=== PATIENT | female | born 1950 | race Caucasian/White ===

== ENCOUNTER 2016-06-07 15:40 | Observation (INO) | payer MEDICARE, OTHER ==
[~2016-06-07] VITALS: Ht 162.6 cm; Wt 136.6 kg
[2016-06-07 15:48] VITALS: BP 150/85; PULSE 69; RESP 16; O2SAT 100
--- NOTE | 2016-06-07 15:50 | ED.REPORT ---
HPI-Chest Pain 40 and Over Date of Service Jun 07, 2016 ED Provider: Melissa Owens MD A 65 year old female with a history of borderline HTN presents to the ED via EMS complaining of middle chest pain onset 2 days ago. Chest pain onset suddenly and is described as tightness and pressure, the pain getting progressively worse since onset. The pain was originally accompanied by coughing. 4 days ago, the patient reports having vomiting, generalized pain , and diaphoresis that she treated with Pepto-Bismol.She reports SOB and right sided rib pain onset yesterday. Patient has baseline swelling in feet and ankles , but denies that there is any new swelling. She denies any heart palpitations or problems lying flat. She was recently traveling in a car for 4 days and got home 5 days ago. She has concern for food poisoning from old butter she ate 5 days ago. Nursing Notes Stated Complaint: CHEST PAIN Chief Complaint: Chest Pain Nursing Notes Reviewed: Yes Allergies: Coded Allergies: No Known Allergies (Unverified , 06/07/16) Scheduled Escitalopram Oxalate (Lexapro) 20 Mg Tablet 20 MG PO HS Scheduled PRN Aspirin/Acetaminophen/Caffeine (Quhhfhx-Qvgtlptdbhoij-Tyko Tab) 250 Mg-250 Mg- 65 Mg Tablet 2 EACH PO DAILY PRN PRN For Headache General Time Seen by MD: 15:47 Chief Complaint Chest pain Hx Obtained From: Patient, EMS Arrived By: Ambulance Sudden in Onset?: Yes Onset Occurred: 2 days ago Symptom Duration: Since onset Severity: Current: Moderate Severity: Maximum: Moderate Recent Healthcare: No recent doctor visit Similar Sx Previous: No Past Medical History Past Medical History Notes: Recent doctor visit in [facility] Past Medical History Borderline HTN Baseline foot and ankle swelling obesity Denies Hx of hypercholesterolemia. Denies: Diabetes mellitus Reports: Depression (Treated with medication. ) Past Surgical History none reported. Social History Currently prepping for her own wedding, selling her house, and applying for a new job. Ambulatory Status Independent Review of Systems Review of Systems Note: Right sided rib pain. Denies problems with lying flat. Respiratory: Reports: Non-productive cough, Shortness of breath Cardiovascular: Reports: Chest pain, Denies: Palpitations GI: Reports: Vomiting Musculoskeletal: Denies: Extremity swelling (Denies swelling in ankle beyond basline) Skin: Reports Diaphoresis Complete sys rev & neg: except as marked. Physical Exam Initial Vital Signs Vital Signs (First) Date Time Temp Pulse Resp B/P Pulse Ox O2 Delivery O2 Flow Rate FiO2 06/07/16 15:48 36.6 69 16 150/85 100 Room Air 06/07/16 17:20 2 Initial VS: Reviewed General/Constitutional: Awake, Alert Appearance / Presentation: Positive: Obese Respiratory / Chest: Atraumatic, Breath sounds NL, Breath sounds = bilat, No respiratory distress, No rales, No rhonchi, No wheezing Cardiovascular: Heart rate NL, Regular rhythm, Heart sounds NL, No gallop, No murmurs, No rubs Abdomen: No guarding, No rebound Lower Extremity / Pelvis / MS: No swelling, No edema Skin: Atraumatic, Color NL, Warm, Dry Neurologic: Oriented X3, Speech NL Interpretation & Diagnostics Lab Results Interpretation Result Diagram: 06/07/16 1553 06/07/16 1553 Test 06/07/16 15:53 06/07/16 18:40 White Blood Count 10.3th/mm3 (3.8-10.1) Red Blood Count 4.98mil/mm3 (3.90-5.20) Hemoglobin 14.4g/dL (12.0-15.6) Hematocrit 44.6% (35.0-46.0) Mean Corpuscular Volume 89.6fL (81-100) Mean Corpuscular Hemoglobin 28.9pg (27.0-35.0) Mean Corpuscular Hemoglobin Concent 32.3% (32.0-37.0) Red Cell Distribution Width 14.1% (12.3-15.4) Platelet Count 328bil/L (150-400) Neutrophils (%) (Auto) 58.2% (40-74) Lymphocytes (%) (Auto) 28.1% (14-46) Monocytes (%) (Auto) 10.1% (4-12) Eosinophils (%) (Auto) 2.8% (0-5) Basophils (%) (Auto) 0.5% (0-3) Hold Purple Top Tube Received (Received) Hold Blue Top Tube Received (Received) Sodium Level 139mEq/L (134-144) Potassium Level 3.6mEq/L (3.5-5.2) Chloride Level 99mEq/L (97-108) Carbon Dioxide Level 23mmol/L (18-29) Blood Urea Nitrogen 19mg/dL (8-27) Creatinine 0.72mg/dL (0.57-1.00) Estimat Glomerular Filtration Rate 116mL/min (>59) Glucose Level 116mg/dL (60-99) Calcium Level 10.1mg/dL (8.5-10.1) Magnesium Level 2.3mg/dL (1.6-2.6) Total Bilirubin 0.5mg/dL (0.0-1.2) Aspartate Amino Transf (AST/SGOT) 30U/L (0-50) Alanine Aminotransferase (ALT/SGPT) 29U/L (0-32) Alkaline Phosphatase 73U/L (25-165) Troponin T < 0.010ug/L (0.0-0.011) Total Protein 7.9g/dL (6.4-8.4) Albumin 4.5g/dL (3.4-5.0) Hold [place] Top Tube Received (Received) Hold Urine Received (Received) ECG Interpretation ECG Interpretation: No ischemia. Time: 16:29 Interpreted by: ED physician Normal ECG Interpretation: Normal rate, Normal sinus rhythm, No acute ischemic changes, Normal QRS, Normal axis, Normal intervals, No change from prior ECGs, Adequate tracing X-Ray Chest Interpretation Chest Xray Interpretation: IMPRESSION: Negative chest. No pneumonia is evident. Dictated by: Zack Palacios M.D. on 06/07/2016 at 15:33 Approved by: Zack Palacios M.D. on 06/07/2016 at 15:34 Interpretation / Wet Read by: Interpret - Radiologist CT Chest Interpretation IMPRESSION: 1. Acute disease is seen in the lungs. (clinical context indicates NO acute disease was meant to be dictated, Dr Owens) 2. No evidence for pulmonary embolus. No abnormality of the aorta or great vessels is seen either. 3. Multiple gallstones less than 1 cm sized are present in the gallbladder. Dictated by: Refugio Rees M.D. on 06/07/2016 at 19:02 Re-Eval/Medical Decision Med Decision/Clinical Course 65-year-old woman presents with two-week history of N keep increasing intermittent chest pain significant exertional dyspnea chest tightness over the upper portion of the chest and intermittent pain over the right side of her chest. This report 4 day car trip prior to symptoms starting symptoms progressing to the point where she is avoiding stairs and cannot reproduce symptoms with minimal activity. He was seen by her primary care physician this morning and sent to the emergency room for additional evaluation. Was given aspirin in the clinic and with a single nitroglycerin her chest pressure has resolved. She has remained pain-free throughout emergency room stay because of the 4 day car trip history possibility of pulmonary embolus was entertained and the CT scan shows no evidence of pulmonary emboli. She has been given Lovenox for presumed unstable angina. Initial labs are unremarkable. With the severity of symptoms recently she will be admitted to the hospitalist for additional evaluation and cardiac consultation if appropriate Source of Hx: Old records, EMS Time of Eval: 16:06 Re-Evaluation/Progress Note: Rechecked patient. Time of Eval: 17:52 Re-Evaluation/Progress Note: Rechecked patient and explained plan to do tests and check for blood clots. Explained plan for possible hospital admission. Time of Eval: 18:01 Re-Evaluation/Progress Note: Explained and discussed patient case with patient's son over cell phone. Consultation : Consulted With: Hospitalist Call Returned at: 20:16 Senior Erp Consultant: Will see patient, Agrees with plan, Accepts admit Counseled Regarding: Diagnosis, Lab results, Need for follow-up Discharge & Departure Primary Impression: Chest pain on exertion Additional Impression: Acute coronary syndrome Ruled Out: Pulmonary embolism, Pneumonia, Pneumothorax, STEMI (ST elevation myocardial infarction) Disposition: ADMITTED TO HOSPITAL Referrals: ALYSIA Brown Attestation Portions of this note were transcribed by Jd Brown. I, Dr. Owens personally performed the history, physical exam and medical decision-making; I reviewed and confirmed the accuracy of the information in the transcribed note. Signed by: Stephanie Nixon, 06/07/2016, 0608. copies to: Melissa Torres MD Jun 07, 2016 15:50 Jd Brown Jun 07, 2016 16:07
[2016-06-07 16:02] LABS: BASOPHILS % (AUTO) 0.5 % (0-3); EOSINOPHILS % (AUTO) 2.8 % (0-5); MONOCYTES % (AUTO) 10.1 % (4-12); Mean Corpuscular Hemoglobin 28.9 pg (27.0-35.0); Mean Corpuscular Volume 89.6 fL (81-100); NEUTROPHILS % (AUTO) 58.2 % (40-74); Platelet Count 328 bil/L (150-400)
[2016-06-07 16:35] LABS: TROPONIN T < 0.010 ug/L (0.0-0.011)
--- NOTE | 2016-06-07 16:35 | DRSVH ---
PROCEDURE: X-RAY CHEST ONE VIEW, PORTABLE ([id number]) INDICATIONS: cp TECHNIQUE: One view of the chest was acquired. COMPARISON: None. FINDINGS: Surgical changes and devices: None. Lungs and pleura: No pleural effusions or pneumothorax. Lungs are clear. Mediastinum: Mediastinal contours appear normal. Heart size is normal. Bones and chest wall: No suspicious bony lesions. Overlying soft tissues appear unremarkable. IMPRESSION: Negative chest. No pneumonia is evident. Dictated by: Zack Palacios M.D. on 06/07/2016 at 15:33 Approved by: Zack Palacios M.D. on 06/07/2016 at 15:34
[2016-06-07 16:37] LABS: Magnesium 2.3 mg/dL (1.6-2.6)
[2016-06-07 17:20] VITALS: BP 154/66; PULSE 68; RESP 16; O2SAT 100
[2016-06-07 18:39] VITALS: BP 137/89; PULSE 84; RESP 16; O2SAT 98
--- NOTE | 2016-06-07 19:08 | DRSVH ---
PROCEDURE: CT ANGIO CHEST PULMONARY EMBOLISM ([id number]) INDICATIONS: chest pain, dyspnea TECHNIQUE: After the administration of intravenous contrast, 2 mm thick sections acquired from the pulmonary api stephany to the posterior costophrenic angles. 3-dimensional maximum intensity projection (MIP) coronal a nd sagittal reformats were then acquired through the thorax. For radiation dose reduction, the follo wing was used: automated exposure control, adjustment of mA and/or kV according to patient size. COMPARISON: [facility], CR, XR CHEST 1VW (PORTABLE), 06/07/2016, 15:59. FINDINGS: Image quality: Excellent. Pulmonary arteries: Pulmonary arteries are normal in size, and demonstrate no intraluminal filling d efects to suggest central pulmonary embolism. Lungs and pleura: Lungs are clear. Small old calcified granuloma is seen on the right No pleural eff usions or pneumothorax. Central and peripheral airways are patent. Mediastinum: Heart size is normal, without pericardial effusion. No mediastinal or hilar adenopathy . Thoracic aorta is normal in caliber and enhancement. Esophagus is normal in caliber, without hiat al hernia. Bones and chest wall: No suspicious bony lesions. Ribs and thoracic spine appear intact throughout. Thyroid gland is within normal limits. No axillary or supraclavicular adenopathy. Abdomen: Multiple small gallstones are present in the gallbladder. Visualized upper abdominal solid o rgans appear normal in the early arterial phase of enhancement. IMPRESSION: 1. Acute disease is seen in the lungs. 2. No evidence for pulmonary embolus. No abnormality of the aorta or great vessels is seen either. 3. Multiple gallstones less than 1 cm sized are present in the gallbladder. Dictated by: Refugio Rees M.D. on 06/07/2016 at 19:02 Approved by: Refugio Rees M.D. on 06/07/2016 at 19:06
[2016-06-07] MEDS ORDERED: ESCI20TA PO (19:35)
[2016-06-07] MEDS ORDERED: ASPI-1148 PO (19:35)
[2016-06-07] MEDS ORDERED: Senna-Docusate 8.6-50 mg Tablet PO PRN (20:00)
[2016-06-07] MEDS ORDERED: Polyethylene Glycol (PEG) 17 Gm Powder PO PRN (20:00)
[2016-06-07] MEDS ORDERED: Ondansetron 2 mg/mL 2 mL Inj IVPUSH PRN (20:00)
[2016-06-07] MEDS ORDERED: Alum-Mag Hydrox-Simeth 30 mL Suspension PO PRN (20:00)
[2016-06-07 20:09] VITALS: BP 142/92; PULSE 78; RESP 16; O2SAT 96
[2016-06-07 20:12] VITALS: BP 142/92; PULSE 78; RESP 16; O2SAT 96
[2016-06-07 20:59] VITALS: BP 146/78; PULSE 71; RESP 20; O2SAT 98
--- NOTE | 2016-06-07 22:18 | PCM.HPMED ---
Subjective Date of Service Jun 07, 2016 Primary Provider: Admitting Physician: Annabelle Waller DO Primary Care Physician: Leia Juarez MD Attending Physician: Annabelle Wlaler DO Admit Status: From the Emergency Department Chief Complaint: Dyspnea on Exertion, Chest Tightness History of Present Illness: Healthy 65yo woman with BMI of 52, hx of borderline HTN never treated, Depression present to our ER via EMS from her doctor's office in [place] reporting 3 days of worsening dyspnea on exertion and chest tightness. She returned 5 days ago from a four day car trip. 4 days ago she had an afternoon of vomiting and diarrhea which she attributes maybe to eating old butter. The vomiting was rather violent she reports and she has had some lower right rib pain since then. She usually uses the stairs at her workplace for exercise but has had to avoid them these last few days. She has a dry cough for these 3 days , chronic bilateral ankle edema that resolves overnight, denies palpitations and orthopnea.She reports she had similar symptoms of chest tightness in 2004, had a stress test she wasn't able to complete, and was sent to the slab tripper where she says they did not find anything to treat and sent her home saying she needed treatment for GERD. Her CTA in the ER today is negative for PE findings and her CXR is normal. She does report a lot of current stress with a good major transition in her life that includes getting in July, quitting work, and moving to [place]. Review of Systems: 14 point ROS is negative except as noted above in the HPI. Allergies Coded Allergies: No Known Allergies (Unverified , 06/07/16) Home Medications Lexipro 20mg PO qhs PMH Borderline HTN Baseline foot and ankle swelling Obesity Depression Denies Hx of hypercholesterolemia. Denies: Diabetes mellitus Surgical History Cataract Surgery in 2016 Hysterectomy in 1994 Family History Father of colon cancer at age 80 Mother of uterine cancer at age 87 Brother has CAD and is s/p CABG Social History Occupation: [employer] Hx Alcohol Use: No Hx Substance Use: No Hx Tobacco Use: No Living Arrangement: with Family Exam Vital Signs Vital Sign - Last Date Time Temp Pulse Resp B/P Pulse Ox O2 Delivery O2 Flow Rate FiO2 06/07/16 20:59 36.6 71 20 146/78 98 Room Air 06/07/16 20:12 2 Exam General: Alert, Oriented X3, Cooperative, No Acute Distress, morbidly obese in appearance Head: Normocephalic, atraumatic. External ears normal. Eyes: PERRLA, EOMI. Anicteric sclerae. Mouth: Mouth Normal, Mucous Membranes Moist/[place] Neck: Neck supple with full range of motion. Chest & Lungs: Clear to auscultation bilaterally with no crackles, wheezes, or rhonchi. Cardiovascular: Regular Rate/Rhythm, Normal S1, Normal S2, No Murmurs/Rubs/ Gallops Abdomen: Non-tender, Non-distended, No masses, Normoactive bowel tones, Soft Musculoskeletal: Normal Range of Motion Extremities: No cyanosis/clubbing bilaterally. Bilateral ankle edema Neurological: Grossly Neurologically Intact, Cranial Nerves 2-12 Intact, Normal Speech, Strength Normal 05/22 ext, Sensation Intact, Cerebellar Function nl Finger-Nose, Cerebellar Function nl Heel-Love, Reflexes Normal Lab and Diagnostics Labs Laboratory Tests Test 06/07/16 15:53 06/07/16 18:40 White Blood Count 10.3th/mm3 (3.8-10.1) Red Blood Count 4.98mil/mm3 (3.90-5.20) Hemoglobin 14.4g/dL (12.0-15.6) Hematocrit 44.6% (35.0-46.0) Mean Corpuscular Volume 89.6fL (81-100) Mean Corpuscular Hemoglobin 28.9pg (27.0-35.0) Mean Corpuscular Hemoglobin Concent 32.3% (32.0-37.0) Red Cell Distribution Width 14.1% (12.3-15.4) Platelet Count 328bil/L (150-400) Neutrophils (%) (Auto) 58.2% (40-74) Lymphocytes (%) (Auto) 28.1% (14-46) Monocytes (%) (Auto) 10.1% (4-12) Eosinophils (%) (Auto) 2.8% (0-5) Basophils (%) (Auto) 0.5% (0-3) Hold Purple Top Tube Received (Received) Hold Blue Top Tube Received (Received) Sodium Level 139mEq/L (134-144) Potassium Level 3.6mEq/L (3.5-5.2) Chloride Level 99mEq/L (97-108) Carbon Dioxide Level 23mmol/L (18-29) Blood Urea Nitrogen 19mg/dL (8-27) Creatinine 0.72mg/dL (0.57-1.00) Estimat Glomerular Filtration Rate 116mL/min (>59) Glucose Level 116mg/dL (60-99) Calcium Level 10.1mg/dL (8.5-10.1) Magnesium Level 2.3mg/dL (1.6-2.6) Total Bilirubin 0.5mg/dL (0.0-1.2) Aspartate Amino Transf (AST/SGOT) 30U/L (0-50) Alanine Aminotransferase (ALT/SGPT) 29U/L (0-32) Alkaline Phosphatase 73U/L (25-165) Troponin T < 0.010ug/L (0.0-0.011) Total Protein 7.9g/dL (6.4-8.4) Albumin 4.5g/dL (3.4-5.0) Hold [place] Top Tube Received (Received) Hold Urine Received (Received) Result Diagram: 06/07/16 1553 06/07/16 1553 X-Rays, CTs and MRIs Chest Xray Interpretation: IMPRESSION: Negative chest. No pneumonia is evident. 12-lead ECG Normal ECG Interpretation: Normal rate, Normal sinus rhythm, rate of 62, No acute ischemic changes, Normal QRS, Normal axis, Normal intervals, No change from prior ECGs, Adequate tracing Assessment & Plan Morbidly obese 65yo woman with history of borderline hypertension, s/p cardiac catheterization in 2004 with her report of normal findings (done in [place] ), Depression well controlled on Lexipro presents with three days of worsening JEFFRIES, dry cough, and chest tightness preceded by a day of vomiting and diarrhea from possible food poisoning. 1. Chest Pressure and JEFFRIES, POA, unchanged. DDx includes most likely unstable angina vs PE (less likely w/neg CTA and no O2 needs at rest) vs HI (first troponin is normal). There is no indication at this point of an infectious process. -Lovenox given at 1800 for UA, consider change to Heparin in morning if troponins trend upward. -NPO after midnight -Serial troponins ordered -Lipid profile ordered, HA1c ordered -No Beta rain tonight, stress test tomorrow -Aspirin 325mg given, continued at 81mg PO daily -Stress test ordered 2. Depression, POA, well controlled -No Escitalopram in our formulary -Start on 06/09/16 after cardiac workup is complete 3. Morbid Obesity, POA, stable -BMI 52 -HA1c ordered 4. Elevated BP without diagnosis in outpatient setting of HTN, POA, stable mild elevation: 142-150/85-95 -Monitor elevated glucose, acute -no h/o diabetes -A1c pending Diet: Heart Healthy after any procedures PRN medications available for nausea, heartburn, constipation: Ondansetron, Maalox, Senna, Miralax Pain Evaluation: Adequate Pain Control GI Prophylaxis: Not indicated VTE Prophylaxis: Sub-Q Enoxaparin Resuscitation Status: CPR: Attempt Resuscitation Attending Statement The patient was seen and examined together with house staff on 06/08/2016 and I agree with the history, exam and plan as outlined in the note above. Elmer Hendricks DO Jun 07, 2016 22:18 Annabelle Waller DO Jun 08, 2016 02:01
--- NOTE | 2016-06-07 22:30 | NUR ---
admit: admit assessment complete. pt A&OX3. denies Chest pain/discomfort. CPOX in place, pt not able to get home CPAP, for the night. NPO after midnight, for stress test. pt aware. will continue to monitor
[2016-06-07] MEDS: 0.9% Sodium Chloride 1,000 ML IV SCH (23:12)
[2016-06-08] MEDS ORDERED: LORazepam 0.5 mg Tablet PO ONE
[2016-06-08 01:18] VITALS: BP 126/71; PULSE 73; RESP 16
[2016-06-08] MEDS: Sodium Chloride LOK Flush 10 mL Syringe IVFLUSH SCH ×3 (01:19→16:30)
--- NOTE | 2016-06-08 02:24 | NUR ---
Activity Received pt at 0135, pt in bed sleeping. No noted issues at this time, will monitor, left room with call light at bedside.
[2016-06-08 03:58] VITALS: PULSE 73
[2016-06-08 05:23] VITALS: BP 138/78; PULSE 69; RESP 16; O2SAT 98
[2016-06-08 06:09] LABS: BASOPHILS % (AUTO) 0.7 % (0-3); EOSINOPHILS % (AUTO) 4.5 % (0-5); MONOCYTES % (AUTO) 8.1 % (4-12); Mean Corpuscular Hemoglobin 28.3 pg (27.0-35.0); Mean Corpuscular Volume 90.4 fL (81-100); NEUTROPHILS % (AUTO) 59.5 % (40-74); Platelet Count 246 bil/L (150-400)
[2016-06-08 07:06] LABS: TROPONIN T 0.01 ug/L (0.0-0.011)
[2016-06-08 08:00] VITALS: PULSE 72
[2016-06-08] MEDS: 0.9% Sodium Chloride 1,000 ML IV SCH (08:29)
--- NOTE | 2016-06-08 11:02 | NUR ---
Off Unit: Patient transported to [facility] @ approx 0900 via wheelchair accompanied by transporter. dye lab technician notified. Denies pain at time of transport.
--- NOTE | 2016-06-08 12:39 | DRSVH ---
PROCEDURE: 1 DAY TREADMILL STRESS TEST Rest and exercise myocardial perfusion SPECT with gated imaging and ejection fraction RADIOPHARMACEUTICAL: 13.3 mCi Tc-99m tetrafosmin IV at rest and 45.6 mCi Tc-99m tetrafosmin IV at pea k exercise. [id number] was performed. INDICATIONS: 65 year-old woman with chest pain. Patient has hypertension and family history of coron jean artery disease. TECHNIQUE: Radiopharmaceutical was injected at peak stress test, and also at rest. SPECT images wer e obtained. SPECT myocardial perfusion images were displayed in short axis, horizontal long axis, an d vertical long axis views. Gated images were reviewed using AutoQUANT software. COMPARISON: None. CARDIAC STRESS: A standard Wade treadmill exercise tolerance test was performed by the patient under the supervision of an attending staff. The patient exercised for 3 minutes and 48 seconds; functional aerobic impai rment (GABE) is +20 %. Hemodynamic data: There is hypertensive and normal heart rate response to exercise stress. Patient achieved 100% of maximum predicted heart rate at peak exercise. Symptoms: Patient denied chest pain during exercise. EKG: No diagnostic EKG changes of ischemia; no ectopy. FINDINGS: Raw data: There is good myocardial labeling by radiotracer. No significant motion artifacts. Left ventricle function: Gated images demonstrate normal left ventricle wall thickening. No segment al wall motion abnormality. No transient ischemic dilation. The left ventricle resting end-diastoli c volume is normal. Left ventricle stress ejection fraction is greater than 70%; normal values are a matty 45%. Myocardial perfusion: There is normal distribution of activity in the left and right ventricular charbel cardium. No fixed or reversible perfusion defects. IMPRESSION: 1. Normal myocardial perfusion images. 2. Normal left ventricular volume and systolic function. 3. Limited exercise capacity. Hypertensive response to exercise. No chest pain or diagnostic EKG ceja ges for ischemia. PQRS ATTESTATIONS: Measure 322 - Is this imaging test primarily performed on a low-risk surgery patient for preoperative evaluation within 30 days preceding their low-risk non-cardiac surgery? Low-risk surgery is defined as cardiac or myocardial infarction less than 1%, including (but not limited to) endoscopic pr ocedures, superficial procedures, cataract surgery, and excisional breast surgery: Answer: No Measure 323 - Is this imaging test performed primarily for the monitoring of an asymptomatic patient who had percutaneous coronary intervention on the visit date or within 2 years of the visit date? An swer: No Measure 324 - Is this imaging test performed primarily for the initial detection and risk assessment on an asymptomatic, low coronary heart disease patient? Low CHD risk definition = clinicians should consider the maximum number of available patient factors used to estimate risk based on Mcdonald (A TP III criteria), typically age, gender, diabetes, smoking status, and use of blood pressure medicati on, and integrate age appropriate estimates for missing elements, such as LDL or standard blood press ure. Answer: No Dictated by: Chikis Branham M.D. on 06/08/2016 at 12:33 Approved by: Chikis Branham M.D. on 06/08/2016 at 12:38
[2016-06-08 13:25] VITALS: BP 134/82; PULSE 69; RESP 18; O2SAT 96
--- NOTE | 2016-06-08 15:59 | PCM.DIMED ---
Discharge Instructions Date of Service Jun 08, 2016 Dates of Hospitalization Jun 07, 2016 at 20:14 Discharge Diagnosis Discharge Diagnosis chest pressure gastroenteritis hypercholesterolemia obesity Diet Low fat, Low Sodium, Heart Healthy Activity No restrictions Patient Instructions follow up with primary care provider for ---mildly elevated LDL 110 --in the meanwhile low doses Aspirin/lipitor, with exercise/weight loss habit of walking 10 min every day to start --peptobismol ok for gastric healing --may consider cardiology referral if chest pressure/ shortness of breath recurs , but studies were normal during this hospitalization Follow-up with PCP in: 2 weeks Raman Aldridge MD Jun 08, 2016 15:59
[2016-06-08] MEDS ORDERED: ATRV10T PO (16:01)
--- NOTE | 2016-06-08 16:08 | PCM.DC.MED ---
Discharge Summary Date of Service Jun 08, 2016 Dates of Hospitalization Date of Hospital Admission Jun 07, 2016 at 20:14 Date of Discharge: Jun 08, 2016 Providers: Admitting Physician: Annabelle Waller DO Primary Care Physician: Leia Juarez MD Attending Physician: Annabelle Waller DO Diagnosis at Time of Discharge Diagnosis at Time of Discharge chest pressure gastroenteritis hypercholesterolemia obesity Procedures XRay, CTs & MRIs PROCEDURE: CT ANGIO CHEST PULMONARY EMBOLISM ([id number]) INDICATIONS: chest pain, dyspnea TECHNIQUE: After the administration of intravenous contrast, 2 mm thick sections acquired from the pulmonary apices to the posterior costophrenic angles. 3-dimensional maximum intensity projection (MIP) coronal and sagittal reformats were then acquired through the thorax. For radiation dose reduction, the following was used: automated exposure control, adjustment of mA and/or kV according to patient size. COMPARISON: [facility], CR, XR CHEST 1VW (PORTABLE), 06/07/2016, 15: 59. FINDINGS: Image quality: Excellent. Pulmonary arteries: Pulmonary arteries are normal in size, and demonstrate no intraluminal filling defects to suggest central pulmonary embolism. Lungs and pleura: Lungs are clear. Small old calcified granuloma is seen on the right No pleural effusions or pneumothorax. Central and peripheral airways are patent. Mediastinum: Heart size is normal, without pericardial effusion. No mediastinal or hilar adenopathy. Thoracic aorta is normal in caliber and enhancement. Esophagus is normal in caliber, without hiatal hernia. Bones and chest wall: No suspicious bony lesions. Ribs and thoracic spine appear intact throughout. Thyroid gland is within normal limits. No axillary or supraclavicular adenopathy. Abdomen: Multiple small gallstones are present in the gallbladder. Visualized upper abdominal solid organs appear normal in the early arterial phase of enhancement. IMPRESSION: 1. Acute disease is seen in the lungs. 2. No evidence for pulmonary embolus. No abnormality of the aorta or great vessels is seen either. 3. Multiple gallstones less than 1 cm sized are present in the gallbladder. PROCEDURE: 1 DAY TREADMILL STRESS TEST Rest and exercise myocardial perfusion SPECT with gated imaging and ejection fraction RADIOPHARMACEUTICAL: 13.3 mCi Tc-99m tetrafosmin IV at rest and 45.6 mCi Tc-99m tetrafosmin IV at peak exercise. [id number] was performed. INDICATIONS: 65 year-old woman with chest pain. Patient has hypertension and family history of coronary artery disease. TECHNIQUE: Radiopharmaceutical was injected at peak stress test, and also at rest. SPECT images were obtained. SPECT myocardial perfusion images were displayed in short axis, horizontal long axis, and vertical long axis views. Gated images were reviewed using [employer] software. COMPARISON: None. CARDIAC STRESS: A standard Wade treadmill exercise tolerance test was performed by the patient under the supervision of an attending staff. The patient exercised for 3 minutes and 48 seconds; functional aerobic impairment (GABE) is +20 %. Hemodynamic data: There is hypertensive and normal heart rate response to exercise stress. Patient achieved 100% of maximum predicted heart rate at peak exercise. Symptoms: Patient denied chest pain during exercise. EKG: No diagnostic EKG changes of ischemia; no ectopy. FINDINGS: Raw data: There is good myocardial labeling by radiotracer. No significant motion artifacts. Left ventricle function: Gated images demonstrate normal left ventricle wall thickening. No segmental wall motion abnormality. No transient ischemic dilation. The left ventricle resting end-diastolic volume is normal. Left ventricle stress ejection fraction is greater than 70%; normal values are above 45%. Myocardial perfusion: There is normal distribution of activity in the left and right ventricular myocardium. No fixed or reversible perfusion defects. IMPRESSION: 1. Normal myocardial perfusion images. 2. Normal left ventricular volume and systolic function. 3. Limited exercise capacity. Hypertensive response to exercise. No chest pain or diagnostic EKG changes for ischemia. Chest Xray Interpretation: IMPRESSION: Negative chest. No pneumonia is evident. ECG 12 Lead Normal ECG Interpretation: Normal rate, Normal sinus rhythm, rate of 62, No acute ischemic changes, Normal QRS, Normal axis, Normal intervals, No change from prior ECGs, Adequate tracing Brief History Healthy 65yo woman with BMI of 52, hx of borderline HTN never treated, Depression present to our ER via EMS from her doctor's office in [place] reporting 3 days of worsening dyspnea on exertion and chest tightness. She returned 5 days ago from a four day car trip. 4 days ago she had an afternoon of vomiting and diarrhea which she attributes maybe to eating old butter. The vomiting was rather violent she reports and she has had some lower right rib pain since then. She usually uses the stairs at her workplace for exercise but has had to avoid them these last few days. She has a dry cough for these 3 days , chronic bilateral ankle edema that resolves overnight, denies palpitations and orthopnea.She reports she had similar symptoms of chest tightness in 2004, had a stress test she wasn't able to complete, and was sent to the [facility] lab[facility] where she says they did not find anything to treat and sent her home saying she needed treatment for GERD. Her CTA in the ER today is negative for PE findings and her CXR is normal. She does report a lot of current stress with a good major transition in her life that includes getting in July, quitting work, and moving to [place]. Hospital Course Morbidly obese 65yo woman with history of borderline hypertension, s/p cardiac catheterization in 2004 with her report of normal findings (done in [place] ), Depression well controlled on Lexipro presents with three days of worsening JEFFRIES, dry cough, and chest tightness preceded by a day of vomiting and diarrhea from possible food poisoning. 1. Chest Pressure and JEFFRIES, POA, unchanged. likely associated w/ nasal drip/ recent heaving from gastroenteritis vomiting --neg stress study, neg trop treand, EF normal. -neg CT PE for clot or for infiltrate mild dyslipidemia, brother + CAD, chronic borderline HTN -Aspirin 325mg given, continued at 81mg PO daily, lipitor 10 per day, incentive to exercise now w/ satding approaching 2. Depression, POA, well controlled -No Escitalopram in our formulary, resume at home 3. Morbid Obesity, POA, stable -BMI 52 --A1c 5.2 4. Elevated BP without diagnosis in outpatient setting of HTN, POA, stable mild elevation: 142-150/85-95 -Monitor elevated glucose, acute -no h/o diabetes PRN azithromcyin for home should bronchitis related green sputum/nasal drainage occur PRN peptobismol due to recent vomiting causing residual gastritis/esophagitis Exam Vital Signs (Last) Date Time Temp Pulse Resp B/P Pulse Ox O2 Delivery O2 Flow Rate FiO2 06/08/16 13:25 36.6 69 18 134/82 96 Room Air 06/07/16 20:12 2 Test 06/07/16 15:53 06/07/16 18:40 06/08/16 06:00 Hold Purple Top Tube Received (Received) Hold Blue Top Tube Received (Received) Hemoglobin A1c 5.2% (4.8-5.6) Magnesium Level 2.3mg/dL (1.6-2.6) Total Bilirubin 0.5mg/dL (0.0-1.2) Aspartate Amino Transf (AST/SGOT) 30U/L (0-50) Alanine Aminotransferase (ALT/SGPT) 29U/L (0-32) Alkaline Phosphatase 73U/L (25-165) Total Protein 7.9g/dL (6.4-8.4) Albumin 4.5g/dL (3.4-5.0) Hold Barto Top Tube Received (Received) Hold Urine Received (Received) White Blood Count 7.1th/mm3 (3.8-10.1) Red Blood Count 4.56mil/mm3 (3.90-5.20) Hemoglobin 12.9g/dL (12.0-15.6) Hematocrit 41.2% (35.0-46.0) Mean Corpuscular Volume 90.4fL (81-100) Mean Corpuscular Hemoglobin 28.3pg (27.0-35.0) Mean Corpuscular Hemoglobin Concent 31.3% (32.0-37.0) Red Cell Distribution Width 13.8% (12.3-15.4) Platelet Count 246bil/L (150-400) Neutrophils (%) (Auto) 59.5% (40-74) Lymphocytes (%) (Auto) 27.1% (14-46) Monocytes (%) (Auto) 8.1% (4-12) Eosinophils (%) (Auto) 4.5% (0-5) Basophils (%) (Auto) 0.7% (0-3) Sodium Level 141mEq/L (134-144) Potassium Level 4.3mEq/L (3.5-5.2) Chloride Level 104mEq/L (97-108) Carbon Dioxide Level 24mmol/L (18-29) Blood Urea Nitrogen 14mg/dL (8-27) Creatinine 0.66mg/dL (0.57-1.00) Estimat Glomerular Filtration Rate 128mL/min (>59) Glucose Level 100mg/dL (60-99) Calcium Level 9.2mg/dL (8.5-10.1) Troponin T 0.010ug/L (0.0-0.011) Triglycerides Level 126mg/dL (0-149) Cholesterol Level 191mg/dL (100-199) LDL Cholesterol, Calculated 110.800mg/dL (0-99) VLDL Cholesterol 25.200mg/dL HDL Cholesterol 55mg/dL (>39) Cholesterol/HDL Ratio 3.47 (0.0-4.4) Discharge Medications Discharge Medications Atorvastatin (Lipitor) 10 Mg Tab 10 MG PO DAILY Prescribed by: RAMAN ALDRIDGE MD Azithromycin (Zithromax (Z-Roly)) 250 Mg Tablet 250 MG PO DIRECTED Take two tablets by mouth on day 1, then take one tablet daily on days 2 through 5. Prescribed by: RAMAN ALDRIDGE MD Escitalopram Oxalate (Lexapro) 20 Mg Tablet 20 MG PO HS (Reported) As needed Aspirin/Acetaminophen/Caffeine (Kddhiqf-Teggxnonpahzv-Mvrx Tab) 250 Mg-250 Mg- 65 Mg Tablet 2 EACH PO DAILY PRN PRN For Headache (Reported) Followup Plan Discharge Diet: Low fat, Low Sodium, Heart Healthy Discharge Activity: No restrictions Patient Instructions follow up with primary care provider for ---mildly elevated LDL 110 --in the meanwhile low doses Aspirin/lipitor, with exercise/weight loss habit of walking 10 min every day to start --peptobismol ok for gastric healing --may consider cardiology referral if chest pressure/ shortness of breath recurs , but studies were normal during this hospitalization Follow-up with PCP in: 2 weeks Raman Aldridge MD Jun 08, 2016 16:08
[2016-06-08] MEDS ORDERED: AZIT250T4 PO (16:09)
--- NOTE | 2016-06-08 16:12 | NUR ---
Social Work: Initial Assessment / D/C Data: Pt is on day 1 of hospitalization. EMR reviewed. D/C orders are in. Pt is a 65 y/o female admitted for progressive exertional dyspnea. Pt's PCP is Dr Juarez, pt's insurance is [employer] [facility]. EMR reviewed. Readmit score not listed. Pt states she lives alone in a 3 story home where she is independent and uses no DME. Pt states she drives, has no hx of HH or SNF, no LTC or VA benefits and is not a caregiver. Pt states she has been up and independent and has a friend coming to pick her up tonight. No further d/c planning needs. SOUND EQUIPMENT MECHANIC will continue to follow if needs arise. Assessment: Pt who is independent at baseline. Plan: Pt will d/c home via POV with friend today. No further d/c planning needs. SOUND EQUIPMENT MECHANIC will continue to follow if needs arise. SOLE Oliveira Addendum: 06/08/16 at 1615 by ESSIE WEI SS Amended: Links added.
--- NOTE | 2016-06-08 17:33 | NUR ---
Discharge: Patient discharged to home @ approx 1715. IV d/c'd intact, telemetry removed, bus driver/monitor notified. Personal belongings sent home with patient. Reviewed new prescriptions, home medication list, d/c instructions and follow up appointments. Verbalized understanding. Ambulated to main entrance accompanied by STORE SALES MANAGER.
== END 2016-06-08 17:10 | disposition home or self-care (01) ==
LOC: SED 15:40 → EDBD 15:40 → MPC 20:14
PROVIDERS: ADMIT Internal Medicine; ATTEND Internal Medicine
DX: R07.89 Other chest pain (principal); R06.00 Dyspnea, unspecified; K52.9 Noninfective gastroenteritis and colitis, unspecified; E78.00 Pure hypercholesterolemia, unspecified; R03.0 Elevated blood-pressure reading, without diagnosis of hypertension; F32.9 Major depressive disorder, single episode, unspecified; K80.80 Other cholelithiasis without obstruction; E66.01 Morbid (severe) obesity due to excess calories; Z68.43 Body mass index [BMI] 50.0-59.9, adult; Z90.710 Acquired absence of both cervix and uterus
CPT/HCPCS: 36415; 71010; 71275; 78452; 80048; 80053; 80061; 83036; 83735; 84484; 85025; 93005; 93017; 96372; 99285; A9502; J1650; J7030; Q9967